=== PATIENT | male | born 1985 | race Hispanic/Latino ===

== ENCOUNTER 2017-08-10 15:48 | Inpatient (IN) | payer MEDICARE, OTHER ==
[~2017-08-10] VITALS: Ht 177.8 cm; Wt 165.6 kg
[2017-08-10] MEDS ORDERED: ONDANSETRON HCL 4 MG/2 ML VIAL ONE (16:37)
[2017-08-10] MEDS ORDERED: MORPHINE SULFATE 8 MG/ML VIAL ONE (16:38)
[2017-08-10 16:59] LABS: BASOPHILS % (AUTO) 0.4 % (0.0-5.0); EOSINOPHILS % (AUTO) 0.9 % (0.0-8.0); LYMPHOCYTES % (AUTO) 17.5 % (21.0-51.0); MEAN CORPUSCULAR HEMOGLOBIN 28.6 pg (27.0-33.0); MEAN CORPUSCULAR HGB CONC 33.8 g/dL (32.0-36.0); MEAN CORPUSCULAR VOLUME 84.6 fL (79-99); MONOCYTES % (AUTO) 6.4 % (3.0-13.0); NEUTROPHILS % (AUTO) 74.8 % (40.0-77.0); PLATELET COUNT (AUTO) 319 K/uL (130-400); RED BLOOD CELL COUNT(AUTO) 4.85 MIL/uL (4.50-6.20); RED CELL DISTRIBUTION WIDTH 14.4 % (11.0-15.5); WHITE BLOOD COUNT (AUTO) 9.2 K/uL (4.8-10.8)
[2017-08-10 17:12] LABS: POTASSIUM 3.2 mmol/L (3.5-5.1)
[2017-08-10 17:17] LABS: ALBUMIN 3.5 g/dL (3.5-5.0); BILIRUBIN,TOTAL 0.7 mg/dL (0.2-1.0); TOTAL PROTEIN, SERUM 7.6 g/dL (6.0-8.3)
[2017-08-10] MEDS ORDERED: GADOBENATE DIMEGLUMINE 20 ML IV ONE (17:31)
[2017-08-10 17:32] LABS: APPEARANCE,URINE Clear (CLEAR); BILIRUBIN,URINE Negative (NEGATIVE); COLOR,URINE Yellow (YELLOW); GLUCOSE, URINE (UA) Negative (NEGATIVE); KETONES,URINE Negative (NEGATIVE); LEUKOCYTE ESTERASE ,URINE Negative (NEGATIVE); NITRATE,URINE Negative (NEGATIVE); OCCULT BLOOD,URINE Negative (NEGATIVE); PH,URINE 6.5 (5.0-8.0); PROTEIN,URINE Trace (NEGATIVE)
[2017-08-10 17:52] LABS: BACTERIA,URINE Rare /HPF (None Seen); RBC,URINE 0-1 /HPF (0-1); SQUAMOUS EPITHELIAL CELL,UR None Seen /HPF (0-2); WBC,URINE 0-1 /HPF (0-1)
[2017-08-10] MEDS ORDERED: MORPHINE SULFATE 4 MG/1ML SYG ONE (22:24)
[2017-08-11] MEDS ORDERED: ACETAMINOPHEN 325 MG TAB PO PRN (00:45)
[2017-08-11] MEDS ORDERED: ONDANSETRON HCL 4 MG/2 ML VIAL ONE (03:06)
[2017-08-11] MEDS ORDERED: MORPHINE SULFATE 4 MG/1ML SYG ONE ×3 (03:07→12:42)
[2017-08-11 15:50] VITALS: BP 133/60
[2017-08-11] MEDS: ONDANSETRON HCL MDV 20ML 2 MG/ML VIAL IVP PRN (17:42)
[2017-08-11] MEDS: ENOXAPARIN SODIUM 40 MG/0.4 ML SYRINGE SQ SCH (17:42)
[2017-08-11] MEDS: MORPHINE SULFATE 4 MG/1ML SYG IVP PRN ×2 (17:43→23:25)
[2017-08-11] MEDS ORDERED: TRAM50TA4 PO (17:48)
[2017-08-11 20:00] VITALS: BP 139/78
[2017-08-12] VITALS: BP 143/74
[2017-08-12] MEDS: MORPHINE SULFATE 4 MG/1ML SYG IVP PRN ×5 (03:17→20:23)
[2017-08-12 04:00] VITALS: BP 116/57
[2017-08-12 07:30] VITALS: BP 82/45
[2017-08-12] MEDS: ENOXAPARIN SODIUM 40 MG/0.4 ML SYRINGE SQ SCH (10:15)
[2017-08-12 11:00] VITALS: BP 132/86
[2017-08-12] MEDS: ONDANSETRON HCL MDV 20ML 2 MG/ML VIAL IVP PRN ×2 (11:53→15:59)
[2017-08-12] MEDS ORDERED: POTASSIUM CHLORIDE 10% ELIXIR 20 MEQ/15 ML UDCUP PO PRN (13:00)
[2017-08-12] MEDS ORDERED: LIDOCAINE HCL-MPF 1% 2ML VIAL IVP PRN (13:00)
[2017-08-12] MEDS ORDERED: POTASSIUM CHLORIDE 20MEQ/100ML 100 ML IV PRN (13:00)
[2017-08-12 16:00] VITALS: BP 191/90
[2017-08-12] MEDS: POTASSIUM CHLORIDE 20 MEQ ERTAB PO PRN ×3 (16:00→20:20)
[2017-08-12 20:00] VITALS: BP 149/100
[2017-08-13] MEDS: MORPHINE SULFATE 4 MG/1ML SYG IVP PRN ×5 (00:45→21:23)
[2017-08-13 04:45] LABS: BASOPHILS % (AUTO) 0.6 % (0.0-5.0); EOSINOPHILS % (AUTO) 0.6 % (0.0-8.0); HEMATOCRIT 41.5 % (42-54); LYMPHOCYTES % (AUTO) 24.7 % (21.0-51.0); MEAN CORPUSCULAR HEMOGLOBIN 29.6 pg (27.0-33.0); MEAN CORPUSCULAR HGB CONC 34.7 g/dL (32.0-36.0); MEAN CORPUSCULAR VOLUME 85.2 fL (79-99); MONOCYTES % (AUTO) 6.9 % (3.0-13.0); NEUTROPHILS % (AUTO) 67.2 % (40.0-77.0); PLATELET COUNT (AUTO) 304 K/uL (130-400); RED BLOOD CELL COUNT(AUTO) 4.87 MIL/uL (4.50-6.20); RED CELL DISTRIBUTION WIDTH 14.5 % (11.0-15.5); WHITE BLOOD COUNT (AUTO) 9.3 K/uL (4.8-10.8)
[2017-08-13 04:56] LABS: CREATININE 0.8 mg/dL (0.5-1.5); MAGNESIUM 1.7 mg/dL (1.80-2.40); POTASSIUM 3.7 mmol/L (3.5-5.1)
[2017-08-13 08:31] VITALS: BP 165/86
[2017-08-13] MEDS: ENOXAPARIN SODIUM 40 MG/0.4 ML SYRINGE SQ SCH (10:01)
[2017-08-13] MEDS: ONDANSETRON HCL MDV 20ML 2 MG/ML VIAL IVP PRN ×2 (10:01→14:17)
[2017-08-13] MEDS ORDERED: GABAPENTIN 100 MG CAPSULE ONE (11:48)
[2017-08-13 12:00] VITALS: BP 160/86
[2017-08-13] MEDS: GABAPENTIN 100 MG CAPSULE PO SCH ×2 (12:38→21:23)
[2017-08-13] MEDS ORDERED: MAGNESIUM SULFATE 1 GM in SODIUM CHLORIDE 0.9% 50 ML IV SCH (15:15)
[2017-08-13] MEDS: HYDROCODONE/ACETAMINOPHEN 5/325 MG TAB PO PRN (15:56)
[2017-08-13 17:24] VITALS: BP 141/80
[2017-08-13 19:53] VITALS: BP 160/97
[2017-08-14 00:20] VITALS: BP 100/63
[2017-08-14] MEDS: HYDROCODONE/ACETAMINOPHEN 5/325 MG TAB PO PRN ×3 (01:17→17:33)
[2017-08-14] MEDS: MORPHINE SULFATE 4 MG/1ML SYG IVP PRN ×4 (03:44→17:59)
[2017-08-14 03:58] LABS: BASOPHILS % (AUTO) 0.5 % (0.0-5.0); EOSINOPHILS % (AUTO) 1.7 % (0.0-8.0); LYMPHOCYTES % (AUTO) 20.5 % (21.0-51.0); MEAN CORPUSCULAR HEMOGLOBIN 28.9 pg (27.0-33.0); MEAN CORPUSCULAR HGB CONC 33.8 g/dL (32.0-36.0); MEAN CORPUSCULAR VOLUME 85.5 fL (79-99); MONOCYTES % (AUTO) 5.6 % (3.0-13.0); NEUTROPHILS % (AUTO) 71.7 % (40.0-77.0); PLATELET COUNT (AUTO) 319 K/uL (130-400); RED BLOOD CELL COUNT(AUTO) 5.15 MIL/uL (4.50-6.20); RED CELL DISTRIBUTION WIDTH 14.7 % (11.0-15.5); WHITE BLOOD COUNT (AUTO) 9.9 K/uL (4.8-10.8)
[2017-08-14 04:20] VITALS: BP 143/78
[2017-08-14 04:25] LABS: CREATININE 0.9 mg/dL (0.5-1.5); MAGNESIUM 1.9 mg/dL (1.80-2.40); POTASSIUM 3.7 mmol/L (3.5-5.1)
[2017-08-14] MEDS: GABAPENTIN 100 MG CAPSULE PO SCH ×3 (06:16→20:07)
[2017-08-14 07:45] VITALS: BP 130/85
[2017-08-14] MEDS: POTASSIUM CHLORIDE 20 MEQ ERTAB PO PRN ×2 (08:40→11:28)
[2017-08-14] MEDS: ENOXAPARIN SODIUM 40 MG/0.4 ML SYRINGE SQ SCH (08:41)
[2017-08-14 12:00] VITALS: BP 131/68
[2017-08-14] MEDS ORDERED: GABAPENTIN 100 MG CAPSULE PO SCH (14:00)
[2017-08-14 16:00] VITALS: BP 123/68
[2017-08-14 20:12] VITALS: BP 129/87
[2017-08-15] VITALS (7 sets, daily range): BP systolic 128–155; BP diastolic 65–89
[2017-08-15] MEDS: MORPHINE SULFATE 4 MG/1ML SYG IVP PRN ×6 (00:46→22:03)
[2017-08-15] MEDS: GABAPENTIN 100 MG CAPSULE PO SCH ×2 (03:22→10:37)
[2017-08-15] MEDS: HYDROCODONE/ACETAMINOPHEN 5/325 MG TAB PO PRN ×2 (03:39→11:58)
[2017-08-15 05:30] LABS: BASOPHILS % (AUTO) 0.4 % (0.0-5.0); EOSINOPHILS % (AUTO) 1.7 % (0.0-8.0); HEMATOCRIT 44.8 % (42-54); LYMPHOCYTES % (AUTO) 20.3 % (21.0-51.0); MEAN CORPUSCULAR HEMOGLOBIN 29.2 pg (27.0-33.0); MEAN CORPUSCULAR HGB CONC 34.1 g/dL (32.0-36.0); MEAN CORPUSCULAR VOLUME 85.8 fL (79-99); MONOCYTES % (AUTO) 6.5 % (3.0-13.0); NEUTROPHILS % (AUTO) 71.1 % (40.0-77.0); PLATELET COUNT (AUTO) 324 K/uL (130-400); RED BLOOD CELL COUNT(AUTO) 5.22 MIL/uL (4.50-6.20); RED CELL DISTRIBUTION WIDTH 15.1 % (11.0-15.5); WHITE BLOOD COUNT (AUTO) 9.5 K/uL (4.8-10.8)
[2017-08-15 05:47] LABS: CREATININE 0.8 mg/dL (0.5-1.5); POTASSIUM 3.6 mmol/L (3.5-5.1)
[2017-08-15] MEDS: POTASSIUM CHLORIDE 20 MEQ ERTAB PO PRN ×2 (07:59→13:56)
[2017-08-15] MEDS: ENOXAPARIN SODIUM 40 MG/0.4 ML SYRINGE SQ SCH (08:00)
[2017-08-15] MEDS: CYCLOBENZAPRINE HCL 10 MG TABLET PO PRN (16:55)
[2017-08-15] MEDS ORDERED: GABAPENTIN 100 MG CAPSULE PO SCH (18:30)
[2017-08-15] MEDS: GABAPENTIN 300 MG CAPSULE PO SCH (20:28)
[2017-08-16] MEDS: MORPHINE SULFATE 4 MG/1ML SYG IVP PRN ×5 (01:55→20:34)
[2017-08-16 03:50] VITALS: BP 140/82
[2017-08-16 07:54] VITALS: BP 164/85
[2017-08-16] MEDS: POTASSIUM CHLORIDE 20 MEQ ERTAB PO PRN ×2 (08:14→11:23)
[2017-08-16] MEDS: CYCLOBENZAPRINE HCL 10 MG TABLET PO PRN (08:14)
[2017-08-16] MEDS: GABAPENTIN 300 MG CAPSULE PO SCH ×3 (08:14→20:31)
[2017-08-16] MEDS: ENOXAPARIN SODIUM 40 MG/0.4 ML SYRINGE SQ SCH (08:15)
[2017-08-16 11:03] VITALS: BP 146/90
[2017-08-16] MEDS ORDERED: GABA-531 PO (14:33)
[2017-08-16] MEDS ORDERED: CYCL10TA7 PO (14:33)
[2017-08-16] MEDS ORDERED: TYL3 PO (14:33)
[2017-08-16 16:31] VITALS: BP 144/111
[2017-08-16 19:45] VITALS: BP 131/98
[2017-08-16 23:37] VITALS: BP 135/98
[2017-08-17] MEDS: MORPHINE SULFATE 4 MG/1ML SYG IVP PRN ×5 (00:21→21:15)
[2017-08-17] MEDS: CYCLOBENZAPRINE HCL 10 MG TABLET PO PRN ×2 (03:30→23:18)
[2017-08-17 03:51] VITALS: BP 161/101
[2017-08-17 06:17] LABS: BASOPHILS % (AUTO) 0.4 % (0.0-5.0); EOSINOPHILS % (AUTO) 1.7 % (0.0-8.0); HEMATOCRIT 45.9 % (42-54); LYMPHOCYTES % (AUTO) 22.8 % (21.0-51.0); MEAN CORPUSCULAR HEMOGLOBIN 29.1 pg (27.0-33.0); MEAN CORPUSCULAR VOLUME 85.6 fL (79-99); MONOCYTES % (AUTO) 7.8 % (3.0-13.0); NEUTROPHILS % (AUTO) 67.3 % (40.0-77.0); PLATELET COUNT (AUTO) 341 K/uL (130-400); RED BLOOD CELL COUNT(AUTO) 5.36 MIL/uL (4.50-6.20); RED CELL DISTRIBUTION WIDTH 14.8 % (11.0-15.5); WHITE BLOOD COUNT (AUTO) 9.6 K/uL (4.8-10.8)
[2017-08-17 06:32] LABS: CREATININE 0.7 mg/dL (0.5-1.5); POTASSIUM 3.4 mmol/L (3.5-5.1)
[2017-08-17 07:31] VITALS: BP 151/88
[2017-08-17] MEDS: ENOXAPARIN SODIUM 40 MG/0.4 ML SYRINGE SQ SCH (07:51)
[2017-08-17] MEDS: GABAPENTIN 300 MG CAPSULE PO SCH ×3 (07:51→21:11)
[2017-08-17 11:28] VITALS: BP 145/86
[2017-08-17 16:32] VITALS: BP 101/86
[2017-08-17] MEDS ORDERED: MORPHINE SULFATE 4 MG/1ML SYG IV ONE (18:00)
[2017-08-17 20:16] VITALS: BP 157/79
[2017-08-18 00:16] VITALS: BP 112/58
[2017-08-18] MEDS ORDERED: MORPHINE SULFATE 4 MG/1ML SYG ONE (03:50)
[2017-08-18 04:16] VITALS: BP 125/54
[2017-08-18 05:02] LABS: BASOPHILS % (AUTO) 0.7 % (0.0-5.0); EOSINOPHILS % (AUTO) 2.6 % (0.0-8.0); HEMATOCRIT 46.1 % (42-54); LYMPHOCYTES % (AUTO) 26.6 % (21.0-51.0); MEAN CORPUSCULAR HEMOGLOBIN 28.9 pg (27.0-33.0); MEAN CORPUSCULAR HGB CONC 33.4 g/dL (32.0-36.0); MEAN CORPUSCULAR VOLUME 86.5 fL (79-99); MONOCYTES % (AUTO) 6.2 % (3.0-13.0); NEUTROPHILS % (AUTO) 63.9 % (40.0-77.0); PLATELET COUNT (AUTO) 347 K/uL (130-400); RED BLOOD CELL COUNT(AUTO) 5.33 MIL/uL (4.50-6.20); RED CELL DISTRIBUTION WIDTH 14.8 % (11.0-15.5)
[2017-08-18 05:10] LABS: CREATININE 0.8 mg/dL (0.5-1.5); POTASSIUM 3.8 mmol/L (3.5-5.1)
[2017-08-18 07:43] VITALS: BP 127/105
[2017-08-18] MEDS: GABAPENTIN 300 MG CAPSULE PO SCH ×3 (08:56→20:26)
[2017-08-18] MEDS: MORPHINE SULFATE 4 MG/1ML SYG IV PRN ×3 (08:57→18:08)
[2017-08-18] MEDS: ENOXAPARIN SODIUM 40 MG/0.4 ML SYRINGE SQ SCH (08:57)
[2017-08-18 11:00] VITALS: BP 152/70
[2017-08-18 15:09] VITALS: BP 125/78
[2017-08-18] MEDS: CYCLOBENZAPRINE HCL 10 MG TABLET PO PRN (18:59)
[2017-08-18 20:20] VITALS: BP 121/91
[2017-08-19 00:20] VITALS: BP 140/97
[2017-08-19] MEDS: MORPHINE SULFATE 4 MG/1ML SYG IV PRN ×4 (00:23→18:32)
[2017-08-19 04:20] VITALS: BP 130/74
[2017-08-19 07:00] VITALS: BP 120/69
[2017-08-19] MEDS: GABAPENTIN 300 MG CAPSULE PO SCH ×3 (09:00→21:48)
[2017-08-19] MEDS: ENOXAPARIN SODIUM 40 MG/0.4 ML SYRINGE SQ SCH (09:00)
[2017-08-19 11:11] VITALS: BP 151/81
[2017-08-19 15:33] VITALS: BP 131/54
[2017-08-19] MEDS: CYCLOBENZAPRINE HCL 10 MG TABLET PO PRN ×2 (17:18→21:48)
[2017-08-19 20:00] VITALS: BP 150/82
[2017-08-19] MEDS: HYDROCODONE/ACETAMINOPHEN 10/325 MG TAB PO PRN (21:50)
[2017-08-20] VITALS: BP 135/89
[2017-08-20 04:00] VITALS: BP 136/91
[2017-08-20] MEDS: MORPHINE SULFATE 4 MG/1ML SYG IV PRN ×4 (04:00→19:57)
[2017-08-20 04:46] LABS: HEMATOCRIT 43.7 % (42-54); MEAN CORPUSCULAR HEMOGLOBIN 28.9 pg (27.0-33.0); NUCLEATED RED BLOOD CELLS 0.1 % (0.0-0.19); PLATELET COUNT (AUTO) 347 K/uL (130-400); RED BLOOD CELL COUNT(AUTO) 5.14 MIL/uL (4.50-6.20); RED CELL DISTRIBUTION WIDTH 14.7 % (11.0-15.5); WHITE BLOOD COUNT (AUTO) 8.4 K/uL (4.8-10.8)
[2017-08-20 04:57] LABS: CREATININE 0.9 mg/dL (0.5-1.5); POTASSIUM 3.7 mmol/L (3.5-5.1)
[2017-08-20 07:30] VITALS: BP 143/109
[2017-08-20] MEDS: GABAPENTIN 300 MG CAPSULE PO SCH ×3 (08:20→19:56)
[2017-08-20] MEDS: ENOXAPARIN SODIUM 40 MG/0.4 ML SYRINGE SQ SCH (08:20)
[2017-08-20] MEDS: POTASSIUM CHLORIDE 20 MEQ ERTAB PO PRN (08:20)
[2017-08-20 11:00] VITALS: BP 157/73
[2017-08-20] MEDS: CYCLOBENZAPRINE HCL 10 MG TABLET PO PRN ×2 (11:52→19:56)
[2017-08-20 16:00] VITALS: BP 121/75
[2017-08-20 19:55] VITALS: BP 128/60
[2017-08-21] VITALS (19 sets, daily range): BP systolic 127–175; BP diastolic 57–115
[2017-08-21] MEDS: MORPHINE SULFATE 4 MG/1ML SYG IV PRN ×3 (00:14→15:12)
[2017-08-21] MEDS: HYDROCODONE/ACETAMINOPHEN 10/325 MG TAB PO PRN ×2 (02:56→15:12)
[2017-08-21 04:42] LABS: HEMATOCRIT 44.2 % (42-54); MEAN CORPUSCULAR HEMOGLOBIN 29.2 pg (27.0-33.0); MEAN CORPUSCULAR HGB CONC 34.2 g/dL (32.0-36.0); MEAN CORPUSCULAR VOLUME 85.2 fL (79-99); PLATELET COUNT (AUTO) 356 K/uL (130-400); RED BLOOD CELL COUNT(AUTO) 5.19 MIL/uL (4.50-6.20); RED CELL DISTRIBUTION WIDTH 14.7 % (11.0-15.5); WHITE BLOOD COUNT (AUTO) 9.1 K/uL (4.8-10.8)
[2017-08-21 04:45] LABS: CREATININE 0.8 mg/dL (0.5-1.5); POTASSIUM 3.6 mmol/L (3.5-5.1)
[2017-08-21 04:51] LABS: BAND NEUTROPHILS % (MANUAL) 2 % (0-2); BASOPHILS % (MANUAL) 1 % (0-2); EOSINOPHILS % (MANUAL) 2 % (1-6); LYMPHOCYTES % (MANUAL) 36 % (22-44); MONOCYTES % (MANUAL) 5 % (2-9); REACTIVE LYMPHOCYTES 5 % (0-0); SEGMENTED NEUTROPHILS % 49 % (40-70)
[2017-08-21 04:52] LABS: MAN.DIFF COMMENT-IMPRESSION MANUAL DIFFERENTIAL
[2017-08-21] MEDS ORDERED: LACTATED RINGERS 1000ML 1,000 ML IV ONE (06:36)
[2017-08-21] MEDS: CEFAZOLIN SODIUM 1 GM VIAL ONE ×2 (06:50→08:00)
[2017-08-21] MEDS ORDERED: DEXAMETHASONE SOD PHOSPHATE 10MG/ML 1ML VIAL ONE ×2 (06:57→10:41)
[2017-08-21] MEDS ORDERED: LIDOCAINE PF 2% 5ML ABBOJECT ONE (06:57)
[2017-08-21] MEDS ORDERED: NEOSTIGMINE 5MG/5ML SYR IV ONE (06:57)
[2017-08-21] MEDS ORDERED: ONDANSETRON HCL 4 MG/2 ML VIAL ONE ×2 (06:57→10:42)
[2017-08-21] MEDS ORDERED: GLYCOPYRROLATE 0.2 MG/ML 5 ML VIAL ONE (06:58)
[2017-08-21] MEDS ORDERED: MIDAZOLAM HCL 1 MG/ML 2ML VIAL ONE ×2 (06:59→07:45)
[2017-08-21] MEDS ORDERED: PROPOFOL 10 MG/ML 20ML VIAL IV ONE ×2 (06:59→11:54)
[2017-08-21] MEDS ORDERED: FENTANYL CITRATE PF 50 MCG/1 ML 2ML VIAL ONE ×7 (07:00→14:12)
[2017-08-21] MEDS ORDERED: THROMBIN-JMI 20000 UNIT KIT TP ONE (07:03)
[2017-08-21] MEDS ORDERED: BACITRACIN 50,000 UNIT VIAL ONE ×2 (07:03→10:27)
[2017-08-21] MEDS ORDERED: BUPIVACAINE/PF 0.25% 30ML VIAL IJ ONE (07:03)
[2017-08-21] MEDS ORDERED: EPINEPHRINE 1 MG/ML AMPULE ONE (07:04)
[2017-08-21] MEDS ORDERED: MANNITOL 20% IV ONE (08:32)
[2017-08-21] MEDS: ENOXAPARIN SODIUM 40 MG/0.4 ML SYRINGE SQ SCH (09:00)
[2017-08-21] MEDS: GABAPENTIN 300 MG CAPSULE PO SCH ×3 (09:00→20:07)
[2017-08-21] MEDS ORDERED: SUCCINYLCHOLINE CHLORIDE 20 MG/ML 10 ML VIAL ONE ×2 (10:41)
[2017-08-21] MEDS ORDERED: ROCURONIUM BROMIDE 10MG/1ML 5ML VL ONE ×2 (10:41)
[2017-08-21] MEDS ORDERED: METOCLOPRAMIDE 10 MG/2 ML VIAL ONE (10:41)
[2017-08-21] MEDS ORDERED: LIDOCAINE HCL 2% JELLY 5 ML ONE (10:54)
[2017-08-21] MEDS ORDERED: ARTIFICIAL TEARS 3.5 GM OINTMENT ONE (10:54)
[2017-08-21] MEDS ORDERED: CEFAZOLIN SODIUM 1 GM VIAL ONE (11:43)
[2017-08-21] MEDS ORDERED: COMPOUND IV REFRIGERATED 1 EACH IVSOLN MISC PRN (11:45)
[2017-08-21] MEDS ORDERED: CEFAZOLIN SODIUM 1 GM VIAL IVP ONE (12:00)
[2017-08-21] MEDS ORDERED: CEFAZOLIN 3GM /D5W 100ML 100 ML IV ONE (12:00)
[2017-08-21] MEDS ORDERED: MEPERIDINE-PF 25 MG/ML SYG ONE ×2 (12:03→13:46)
[2017-08-21] MEDS ORDERED: PROMETHAZINE HCL 25 MG/ML 1ML AMPULE IM ONE (13:46)
[2017-08-21] MEDS: LACTATED RINGERS 1000ML 1,000 ML IV SCH (14:19)
[2017-08-21] MEDS ORDERED: SODIUM CHLORIDE 0.9% 10 ML VIAL IVP PRN (14:30)
[2017-08-21] MEDS ORDERED: CEFAZOLIN 3GM /D5W 100ML 100 ML IV SCH (14:30)
[2017-08-21] MEDS ORDERED: MORPHINE SULFATE 2 MG/ML 1ML SYG IVP PRN (14:30)
[2017-08-21] MEDS ORDERED: CEFAZOLIN SODIUM 1 GM VIAL IVP SCH (14:30)
[2017-08-21] MEDS ORDERED: ACETAMINOPHEN-CODEINE 300/30MG TAB PO SCH (14:30)
[2017-08-21] MEDS: DEXAMETHASONE SOD PHOSPHATE 4 MG/ML 1ML VIAL IVP SCH ×2 (15:16→20:07)
[2017-08-21] MEDS ORDERED: ONDANSETRON HCL 4 MG/2 ML VIAL IV PRN (16:15)
[2017-08-21] MEDS ORDERED: PROMETHAZINE HCL 25 MG/ML 1ML AMPULE IM PRN (16:15)
[2017-08-21] MEDS ORDERED: DIPHENHYDRAMINE HCL 25 MG CAPSULE PO PRN (16:15)
[2017-08-21] MEDS ORDERED: NALOXONE HCL 0.4 MG/1 ML ML IVP PRN (16:15)
[2017-08-21] MEDS ORDERED: HYDROMORPHONE 1 MG/1 ML AMP ONE (16:21)
[2017-08-21] MEDS: CYCLOBENZAPRINE HCL 10 MG TABLET PO PRN ×2 (16:24→23:18)
[2017-08-21] MEDS: CEFAZOLIN 3GM /D5W 100ML 100 ML IV SCH ×2 (16:24→23:08)
[2017-08-21] MEDS ORDERED: HYDROMORPHONE 1 MG/1 ML AMP IVP ONE (16:30)
[2017-08-21] MEDS ORDERED: HYDROMORPHONE HCL 2 MG/ML VIAL IVP ONE (16:30)
[2017-08-21] MEDS: HYDROMORPHONE PCA 10 MG/50 ML 50 ML IV PRN (17:39)
[2017-08-21] MEDS ORDERED: GABAPENTIN 300 MG CAPSULE ONE (19:37)
[2017-08-22] VITALS (7 sets, daily range): BP systolic 100–133; BP diastolic 57–78
[2017-08-22] MEDS: DEXAMETHASONE SOD PHOSPHATE 4 MG/ML 1ML VIAL IVP SCH ×4 (01:52→16:55)
[2017-08-22] MEDS: LACTATED RINGERS 1000ML 1,000 ML IV SCH ×3 (03:39→19:29)
[2017-08-22 04:45] LABS: HEMATOCRIT 39.6 % (42-54); MEAN CORPUSCULAR HEMOGLOBIN 28.7 pg (27.0-33.0); MEAN CORPUSCULAR HGB CONC 33.6 g/dL (32.0-36.0); MEAN CORPUSCULAR VOLUME 85.2 fL (79-99); NUCLEATED RED BLOOD CELLS 0.1 % (0.0-0.19); PLATELET COUNT (AUTO) 376 K/uL (130-400); RED BLOOD CELL COUNT(AUTO) 4.65 MIL/uL (4.50-6.20); RED CELL DISTRIBUTION WIDTH 14.8 % (11.0-15.5); WHITE BLOOD COUNT (AUTO) 18.9 K/uL (4.8-10.8)
[2017-08-22 04:54] LABS: POTASSIUM 3.4 mmol/L (3.5-5.1)
[2017-08-22] MEDS: HYDROMORPHONE PCA 10 MG/50 ML 50 ML IV PRN (05:31)
[2017-08-22] MEDS: CEFAZOLIN 3GM /D5W 100ML 100 ML IV SCH (06:12)
[2017-08-22] MEDS: POTASSIUM CHLORIDE 20 MEQ ERTAB PO PRN ×3 (06:55→11:52)
[2017-08-22] MEDS: GABAPENTIN 300 MG CAPSULE PO SCH ×3 (08:33→19:53)
[2017-08-22] MEDS: HYDROCODONE/ACETAMINOPHEN 10/325 MG TAB PO PRN (09:39)
[2017-08-22] MEDS: ENOXAPARIN SODIUM 40 MG/0.4 ML SYRINGE SQ SCH (09:39)
[2017-08-22] MEDS: MORPHINE SULFATE 4 MG/1ML SYG IV PRN ×2 (11:53→18:24)
[2017-08-22] MEDS ORDERED: FENTANYL 50 MCG/HR PATCH TD SCH (13:15)
[2017-08-22] MEDS: CYCLOBENZAPRINE HCL 10 MG TABLET PO SCH ×2 (14:44→19:53)
[2017-08-22] MEDS: HYDROCODONE/ACETAMINOPHEN 5/325 MG TAB PO PRN (16:55)
[2017-08-22] MEDS: ACETAMINOPHEN-CODEINE 300/30MG TAB PO PRN (19:54)
[2017-08-23] MEDS: MORPHINE SULFATE 4 MG/1ML SYG IV PRN ×5 (00:52→23:23)
[2017-08-23] MEDS: DEXAMETHASONE SOD PHOSPHATE 4 MG/ML 1ML VIAL IVP SCH ×4 (02:54→19:34)
[2017-08-23 04:00] VITALS: BP 130/89
[2017-08-23 05:31] LABS: HEMATOCRIT 37.5 % (42-54); MEAN CORPUSCULAR HEMOGLOBIN 29.6 pg (27.0-33.0); MEAN CORPUSCULAR HGB CONC 34.4 g/dL (32.0-36.0); MEAN CORPUSCULAR VOLUME 86.1 fL (79-99); PLATELET COUNT (AUTO) 385 K/uL (130-400); RED BLOOD CELL COUNT(AUTO) 4.36 MIL/uL (4.50-6.20); RED CELL DISTRIBUTION WIDTH 14.8 % (11.0-15.5); WHITE BLOOD COUNT (AUTO) 18.7 K/uL (4.8-10.8)
[2017-08-23 05:55] LABS: ALBUMIN 2.6 g/dL (3.5-5.0); BILIRUBIN,TOTAL 0.5 mg/dL (0.2-1.0); CREATININE 0.7 mg/dL (0.5-1.5); POTASSIUM 3.8 mmol/L (3.5-5.1)
[2017-08-23 07:38] VITALS: BP 132/71
[2017-08-23] MEDS: CYCLOBENZAPRINE HCL 10 MG TABLET PO SCH ×3 (08:58→19:34)
[2017-08-23] MEDS: HYDROCODONE/ACETAMINOPHEN 5/325 MG TAB PO PRN ×3 (08:59→22:15)
[2017-08-23] MEDS: GABAPENTIN 300 MG CAPSULE PO SCH ×3 (08:59→19:34)
[2017-08-23] MEDS: ENOXAPARIN SODIUM 40 MG/0.4 ML SYRINGE SQ SCH (09:01)
[2017-08-23 11:21] VITALS: BP 129/87
[2017-08-23 16:25] VITALS: BP 113/66
[2017-08-23] MEDS: LIDOCAINE 5% TOPICAL PATCH TP SCH (18:20)
[2017-08-23] MEDS: LACTATED RINGERS 1000ML 1,000 ML IV SCH (19:39)
[2017-08-23 20:14] VITALS: BP 130/59
[2017-08-24] VITALS (7 sets, daily range): BP systolic 116–163; BP diastolic 71–94
[2017-08-24] MEDS: DEXAMETHASONE SOD PHOSPHATE 4 MG/ML 1ML VIAL IVP SCH ×4 (02:28→20:42)
[2017-08-24] MEDS: MORPHINE SULFATE 4 MG/1ML SYG IV PRN (05:42)
[2017-08-24] MEDS: LIDOCAINE 5% TOPICAL PATCH TP SCH (08:40)
[2017-08-24] MEDS: CYCLOBENZAPRINE HCL 10 MG TABLET PO SCH ×3 (08:40→20:42)
[2017-08-24] MEDS: GABAPENTIN 300 MG CAPSULE PO SCH ×3 (08:40→20:42)
[2017-08-24] MEDS: ENOXAPARIN SODIUM 40 MG/0.4 ML SYRINGE SQ SCH (08:41)
[2017-08-24] MEDS: TRAMADOL HCL 50 MG TABLET PO PRN (08:50)
[2017-08-24] MEDS: LACTATED RINGERS 1000ML 1,000 ML IV SCH ×2 (08:59→22:19)
[2017-08-24] MEDS: ACETAMINOPHEN-CODEINE 300/30MG TAB PO PRN (09:32)
[2017-08-24] MEDS ORDERED: MEPERIDINE HCL/PF 25 MG/0.5 ML AMPUL IVP PRN (13:45)
[2017-08-24] MEDS ORDERED: FENTANYL 75 MCG/HR PATCH TD SCH (14:00)
[2017-08-24] MEDS: MEPERIDINE-PF 25 MG/ML SYG IVP PRN ×3 (16:30→21:53)
[2017-08-24] MEDS: HYDROCODONE/ACETAMINOPHEN 10/325 MG TAB PO PRN (20:43)
[2017-08-25 03:35] VITALS: BP 146/95
[2017-08-25] MEDS: DEXAMETHASONE SOD PHOSPHATE 4 MG/ML 1ML VIAL IVP SCH ×4 (04:05→20:14)
[2017-08-25] MEDS: MEPERIDINE-PF 25 MG/ML SYG IVP PRN ×5 (04:06→23:45)
[2017-08-25] MEDS: GABAPENTIN 300 MG CAPSULE PO SCH ×3 (08:16→20:13)
[2017-08-25] MEDS: LIDOCAINE 5% TOPICAL PATCH TP SCH (08:17)
[2017-08-25] MEDS: ENOXAPARIN SODIUM 40 MG/0.4 ML SYRINGE SQ SCH (08:34)
[2017-08-25 08:41] VITALS: BP 147/92
[2017-08-25] MEDS: HYDROCODONE/ACETAMINOPHEN 10/325 MG TAB PO PRN ×2 (10:24→20:13)
[2017-08-25] MEDS: CYCLOBENZAPRINE HCL 10 MG TABLET PO SCH ×3 (10:32→20:12)
[2017-08-25 12:00] VITALS: BP 152/73
[2017-08-25 16:00] VITALS: BP 137/69
[2017-08-25 20:00] VITALS: BP 102/71
[2017-08-25] MEDS: DOCUSATE SODIUM 100 MG CAP PO SCH (21:00)
[2017-08-26] VITALS: BP 133/76
[2017-08-26] MEDS: MEPERIDINE-PF 25 MG/ML SYG IVP PRN ×2 (03:40→08:17)
[2017-08-26] MEDS: DEXAMETHASONE SOD PHOSPHATE 4 MG/ML 1ML VIAL IVP SCH ×4 (03:40→20:30)
[2017-08-26 04:00] VITALS: BP 146/82
[2017-08-26 05:02] LABS: BASOPHILS % (AUTO) 0.1 % (0.0-5.0); HEMATOCRIT 43.5 % (42-54); LYMPHOCYTES % (AUTO) 20.3 % (21.0-51.0); MEAN CORPUSCULAR HEMOGLOBIN 28.7 pg (27.0-33.0); MEAN CORPUSCULAR HGB CONC 33.5 g/dL (32.0-36.0); MEAN CORPUSCULAR VOLUME 85.8 fL (79-99); MONOCYTES % (AUTO) 6.6 % (3.0-13.0); PLATELET COUNT (AUTO) 486 K/uL (130-400); RED BLOOD CELL COUNT(AUTO) 5.07 MIL/uL (4.50-6.20); RED CELL DISTRIBUTION WIDTH 14.6 % (11.0-15.5)
[2017-08-26 05:22] LABS: CREATININE 0.7 mg/dL (0.5-1.5); POTASSIUM 3.6 mmol/L (3.5-5.1)
[2017-08-26 07:57] VITALS: BP 153/108
[2017-08-26] MEDS: HYDROCODONE/ACETAMINOPHEN 10/325 MG TAB PO PRN ×3 (08:03→18:35)
[2017-08-26] MEDS: DOCUSATE SODIUM 100 MG CAP PO SCH ×2 (09:00→20:16)
[2017-08-26] MEDS: GABAPENTIN 300 MG CAPSULE PO SCH ×3 (09:58→20:15)
[2017-08-26] MEDS: CYCLOBENZAPRINE HCL 10 MG TABLET PO SCH ×3 (09:58→20:16)
[2017-08-26] MEDS: ENOXAPARIN SODIUM 40 MG/0.4 ML SYRINGE SQ SCH (09:58)
[2017-08-26] MEDS: LIDOCAINE 5% TOPICAL PATCH TP SCH (09:58)
[2017-08-26 12:14] VITALS: BP 124/105
[2017-08-26 16:00] VITALS: BP 139/85
[2017-08-26] MEDS: MEPERIDINE-PF 25 MG/ML SYG IM PRN ×2 (16:14→20:18)
[2017-08-26] MEDS: TRAMADOL HCL 50 MG TABLET PO PRN (20:16)
[2017-08-26] MEDS: PROMETHAZINE HCL 25 MG/ML 1ML AMPULE IM PRN (20:17)
[2017-08-26 20:42] VITALS: BP 147/63
[2017-08-27] MEDS: PROMETHAZINE HCL 25 MG/ML 1ML AMPULE IM PRN ×2 (00:59→06:11)
[2017-08-27] MEDS: HYDROCODONE/ACETAMINOPHEN 10/325 MG TAB PO PRN ×3 (01:00→16:35)
[2017-08-27] MEDS: MEPERIDINE-PF 25 MG/ML SYG IM PRN ×3 (01:01→10:29)
[2017-08-27] MEDS: DEXAMETHASONE SOD PHOSPHATE 4 MG/ML 1ML VIAL IVP SCH ×2 (02:30→08:30)
[2017-08-27 08:02] VITALS: BP 139/107
[2017-08-27] MEDS ORDERED: FENTANYL 100 MCG/HR PATCH TD ONE ×2 (08:51→12:16)
[2017-08-27] MEDS: GABAPENTIN 300 MG CAPSULE PO SCH ×2 (09:28→14:49)
[2017-08-27] MEDS: LIDOCAINE 5% TOPICAL PATCH TP SCH (09:28)
[2017-08-27] MEDS: CYCLOBENZAPRINE HCL 10 MG TABLET PO SCH ×2 (09:28→14:49)
[2017-08-27] MEDS: ENOXAPARIN SODIUM 40 MG/0.4 ML SYRINGE SQ SCH (09:30)
[2017-08-27] MEDS: DOCUSATE SODIUM 100 MG CAP PO SCH (09:31)
[2017-08-27 12:00] VITALS: BP 134/74
[2017-08-27] MEDS ORDERED: MEPERIDINE-PF 25 MG/ML SYG IM PRN (13:30)
[2017-08-27] MEDS ORDERED: FENTANYL 100 MCG/HR PATCH TD SCH (14:00)
[2017-08-27] MEDS: LACTULOSE 20 GM/30 ML UDCUP PO PRN ×2 (14:49→14:50)
== END 2017-08-27 17:03 | DRG 516 ==
LOC: EDH 15:48 → EDHIP 15:49 → 4CH 08-11 15:58 → 4BH 08-14 18:54
PROVIDERS: ADMIT Family Medicine; ATTEND Family Medicine
PROC: 01N80ZZ Release Thoracic Nerve, Open Approach (ICD-10-PCS; principal; 2017-08-21 07:45)
PROC: 4A11X4G Monitoring of Peripheral Nervous Electrical Activity, Intraoperative, External Approach (ICD-10-PCS; 2017-08-21 07:45)
DX: M48.04 Spinal stenosis, thoracic region (principal); G95.20 Unspecified cord compression; Z68.43 Body mass index [BMI] 50.0-59.9, adult; G82.20 Paraplegia, unspecified; E66.01 Morbid (severe) obesity due to excess calories; M47.816 Spondylosis without myelopathy or radiculopathy, lumbar region; M54.5 Low back pain; Z98.1 Arthrodesis status; D72.829 Elevated white blood cell count, unspecified; G62.9 Polyneuropathy, unspecified; G89.29 Other chronic pain; Z87.891 Personal history of nicotine dependence
CPT/HCPCS: 36415; 71045; 72146; 72158; 76000; 80048; 80053; 81001; 83735; 84132; 85025; 85027; 93005; 97039; A4218; A9577; J0171; J0330; J0690; J1100; J1170; J1650; J2001; J2175; J2250; J2270; J2405; J2550; J2704; J2710; J2765; J3010; J3475; J3490; J7030; J7120

== ENCOUNTER 2017-11-18 01:39 | Emergency (ER) | payer MEDICARE, OTHER ==
[~2017-11-18 01:39] MED LIST: CYCL10TA7 PO; GABA-531 PO; TRAM50TA4 PO; TYL3 PO
[2017-11-18 03:31] LABS: BASOPHILS % (AUTO) 0.5 % (0.0-5.0); EOSINOPHILS % (AUTO) 1.2 % (0.0-8.0); HEMATOCRIT 41.1 % (42-54); MEAN CORPUSCULAR HEMOGLOBIN 27.5 pg (27.0-33.0); MEAN CORPUSCULAR VOLUME 83.1 fL (79-99); MONOCYTES % (AUTO) 4.6 % (3.0-13.0); NEUTROPHILS % (AUTO) 81.7 % (40.0-77.0); PLATELET COUNT (AUTO) 334 K/uL (130-400); RED BLOOD CELL COUNT(AUTO) 4.94 MIL/uL (4.50-6.20); RED CELL DISTRIBUTION WIDTH 14.4 % (11.0-15.5); WHITE BLOOD COUNT (AUTO) 11.2 K/uL (4.8-10.8)
[2017-11-18 03:38] LABS: CREATININE 0.7 mg/dL (0.5-1.5); POTASSIUM 3.3 mmol/L (3.5-5.1)
[2017-11-18 03:44] LABS: ALBUMIN 3.8 g/dL (3.5-5.0); BILIRUBIN,TOTAL 0.6 mg/dL (0.2-1.0); TOTAL PROTEIN, SERUM 8.8 g/dL (6.0-8.3)
[2017-11-18 03:48] LABS: PARTIAL THROMBOPLASTIN TIME 30.4 SEC (26.3-35.5); PROTHROMBIN TIME 10.5 SEC (9.6-11.6)
[2017-11-18 03:49] LABS: CREATINE KINASE, TOTAL 163 U/L (21-232); MYOGLOBIN 46 ng/mL (10-92); TROPONIN I < 0.04 ng/mL (0.00-0.06)
[2017-11-18 03:54] LABS: BILIRUBIN,URINE Negative (NEGATIVE); COLOR,URINE Yellow (YELLOW); GLUCOSE, URINE (UA) Negative (NEGATIVE); KETONES,URINE Trace mg/dL (NEGATIVE); LEUKOCYTE ESTERASE ,URINE Trace (NEGATIVE); NITRATE,URINE Negative (NEGATIVE); OCCULT BLOOD,URINE Negative (NEGATIVE); PH,URINE >=9.0 (5.0-8.0); PROTEIN,URINE Negative (NEGATIVE)
[2017-11-18 04:02] LABS: AMPHET/METH SCREEN,URINE NEGATIVE (NEGATIVE); BARBITURATE SCREEN, URINE NEGATIVE (NEGATIVE); BENZODIAZEPINES SCREEN,URINE NEGATIVE (NEGATIVE); CANNABINOID SCREEN,URINE NEGATIVE (NEGATIVE); COCAINE SCREEN,URINE NEGATIVE (NEGATIVE); OPIATE SCREEN,URINE NEGATIVE (NEGATIVE); PHENCYCLIDINE SCREEN,URINE NEGATIVE (NEGATIVE)
[2017-11-18 04:03] LABS: APPEARANCE,URINE SLIGHTLY CLOUDY (CLEAR)
[2017-11-18 04:17] LABS: AMORPHOUS SEDIMENT,UR Moderate /LPF (None Seen); BACTERIA,URINE Few /HPF (None Seen); RBC,URINE 0-1 /HPF (0-1); SQUAMOUS EPITHELIAL CELL,UR 0-2 /HPF (0-2)
[2017-11-18] MEDS ORDERED: IOHEXOL 350 MG/ML 100ML INFUS..BTL IV ONE (04:21)
== END 2017-11-18 07:38 | disposition home or self-care (01) ==
LOC: EDH 01:39
DX: F41.9 Anxiety disorder, unspecified (principal); R60.9 Edema, unspecified; R06.02 Shortness of breath; E66.01 Morbid (severe) obesity due to excess calories; Z68.43 Body mass index [BMI] 50.0-59.9, adult
CPT/HCPCS: 36415; 71045; 71275; 80053; 80305; 81001; 82550; 83874; 84484; 85025; 85378; 85610; 85730; 93005; 99285; Q9967

== ENCOUNTER 2019-05-25 20:21 | Emergency (ER) | payer OTHER, MEDICARE ==
[2019-05-25 20:49] LABS: BASOPHILS % (AUTO) 0.5 % (0.0-5.0); EOSINOPHILS % (AUTO) 1.3 % (0.0-8.0); HEMATOCRIT 46.3 % (42-54); LYMPHOCYTES % (AUTO) 18.7 % (21.0-51.0); MEAN CORPUSCULAR HEMOGLOBIN 28.1 pg (27.0-33.0); MEAN CORPUSCULAR HGB CONC 33.5 g/dL (32.0-36.0); MEAN CORPUSCULAR VOLUME 83.9 fL (79-99); MONOCYTES % (AUTO) 6.2 % (3.0-13.0); NEUTROPHILS % (AUTO) 73.1 % (40.0-77.0); PLATELET COUNT (AUTO) 356 K/uL (130-400); RED BLOOD CELL COUNT(AUTO) 5.52 MIL/uL (4.50-6.20); RED CELL DISTRIBUTION WIDTH 13.8 % (11.0-15.5); WHITE BLOOD COUNT (AUTO) 12.2 K/uL (4.8-10.8)
[2019-05-25 21:07] LABS: ALBUMIN 3.7 g/dL (3.5-5.0); BILIRUBIN,TOTAL 0.8 mg/dL (0.2-1.0); CREATININE 0.8 mg/dL (0.5-1.5); TOTAL PROTEIN, SERUM 9.1 g/dL (6.0-8.3)
[2019-05-25 21:14] LABS: POTASSIUM 2.9 mmol/L (3.5-5.1)
[2019-05-25] MEDS ORDERED: POTASSIUM CHLORIDE 20 MEQ ERTAB PO ONE (21:17)
[2019-05-25] MEDS ORDERED: ONDANSETRON HCL 4 MG/2 ML VIAL ONE (21:17)
[2019-05-25 21:26] LABS: APPEARANCE,URINE Clear (CLEAR); BILIRUBIN,URINE Negative (NEGATIVE); COLOR,URINE Yellow (YELLOW); GLUCOSE, URINE (UA) Negative (NEGATIVE); KETONES,URINE Negative (NEGATIVE); LEUKOCYTE ESTERASE ,URINE Negative (NEGATIVE); NITRATE,URINE Negative (NEGATIVE); OCCULT BLOOD,URINE Nonhemolyzed Trace (NEGATIVE); PH,URINE 6.5 (5.0-8.0); PROTEIN,URINE POS 1+ mg/dL (NEGATIVE)
[2019-05-25 21:31] LABS: AMPHET/METH SCREEN,URINE NEGATIVE (NEGATIVE); BARBITURATE SCREEN, URINE NEGATIVE (NEGATIVE); BENZODIAZEPINES SCREEN,URINE NEGATIVE (NEGATIVE); CANNABINOID SCREEN,URINE NEGATIVE (NEGATIVE); COCAINE SCREEN,URINE NEGATIVE (NEGATIVE); OPIATE SCREEN,URINE NEGATIVE (NEGATIVE); PHENCYCLIDINE SCREEN,URINE NEGATIVE (NEGATIVE)
[2019-05-25 21:47] LABS: BACTERIA,URINE Rare /HPF (None Seen); WBC,URINE 0-1 /HPF (0-1)
[2019-05-25 21:48] LABS: MUCUS,URINE Rare LPF (None Seen); SQUAMOUS EPITHELIAL CELL,UR Rare /HPF (0-2)
[2019-05-25] MEDS ORDERED: POTASSIUM BICARB/CIT AC 25 MEQ TABLET.EFF ONE (22:21)
[2019-05-25 22:36] LABS: INR 0.98 (0.85-1.15); PARTIAL THROMBOPLASTIN TIME 30.9 SEC (26.3-35.5); PROTHROMBIN TIME 10.6 SEC (9.6-11.6)
[2019-05-25] MEDS ORDERED: OXYMETAZOLINE HCL SPRAY 15 ML BOTTLE ONE (23:22)
== END 2019-05-25 23:32 | disposition home or self-care (01) ==
LOC: EDH 20:21
DX: E87.6 Hypokalemia (principal); R42 Dizziness and giddiness; I10 Essential (primary) hypertension; F41.9 Anxiety disorder, unspecified; R04.0 Epistaxis; Z87.891 Personal history of nicotine dependence
CPT/HCPCS: 36415; 80053; 80305; 81001; 82550; 84484; 85025; 85610; 85730; 93005; 96374; 99285; J2405

== ENCOUNTER 2019-06-23 17:49 | Emergency (ER) | payer OTHER, MEDICARE ==
[2019-06-23] MEDS ORDERED: SODIUM CHLORIDE IRRIG SOLUTION 1,000 ML IR ONE (17:50)
[2019-06-23 18:38] LABS: BASOPHILS % (AUTO) 0.8 % (0.0-5.0); EOSINOPHILS % (AUTO) 1.3 % (0.0-8.0); HEMATOCRIT 43.6 % (42-54); LYMPHOCYTES % (AUTO) 20.4 % (21.0-51.0); MEAN CORPUSCULAR HEMOGLOBIN 28.5 pg (27.0-33.0); MEAN CORPUSCULAR HGB CONC 33.5 g/dL (32.0-36.0); MEAN CORPUSCULAR VOLUME 85.2 fL (79-99); MONOCYTES % (AUTO) 6.2 % (3.0-13.0); NEUTROPHILS % (AUTO) 70.8 % (40.0-77.0); PLATELET COUNT (AUTO) 382 K/uL (130-400); RED BLOOD CELL COUNT(AUTO) 5.12 MIL/uL (4.50-6.20); RED CELL DISTRIBUTION WIDTH 13.4 % (11.0-15.5); WHITE BLOOD COUNT (AUTO) 10.7 K/uL (4.8-10.8)
[2019-06-23 19:07] LABS: INR 0.95 (0.85-1.15); PARTIAL THROMBOPLASTIN TIME 26.3 SEC (26.3-35.5); PROTHROMBIN TIME 10.3 SEC (9.6-11.6)
[2019-06-23 19:08] LABS: CREATININE 1.5 mg/dL (0.5-1.5); POTASSIUM 3.6 mmol/L (3.5-5.1)
[2019-06-23 19:19] LABS: ALBUMIN 3.3 g/dL (3.5-5.0); BILIRUBIN,TOTAL 0.3 mg/dL (0.2-1.0); TOTAL PROTEIN, SERUM 7.6 g/dL (6.0-8.3)
[2019-06-23 20:48] LABS: APPEARANCE,URINE Clear (CLEAR); BILIRUBIN,URINE Negative (NEGATIVE); COLOR,URINE Yellow (YELLOW); GLUCOSE, URINE (UA) Negative (NEGATIVE); KETONES,URINE Trace mg/dL (NEGATIVE); LEUKOCYTE ESTERASE ,URINE Trace (NEGATIVE); NITRATE,URINE Negative (NEGATIVE); OCCULT BLOOD,URINE Negative (NEGATIVE); PH,URINE 6.5 (5.0-8.0); PROTEIN,URINE POS 1+ mg/dL (NEGATIVE)
[2019-06-23 20:56] LABS: AMPHET/METH SCREEN,URINE NEGATIVE (NEGATIVE); BARBITURATE SCREEN, URINE NEGATIVE (NEGATIVE); BENZODIAZEPINES SCREEN,URINE NEGATIVE (NEGATIVE); CANNABINOID SCREEN,URINE POSITIVE (NEGATIVE); COCAINE SCREEN,URINE NEGATIVE (NEGATIVE); OPIATE SCREEN,URINE NEGATIVE (NEGATIVE); PHENCYCLIDINE SCREEN,URINE POSITIVE (NEGATIVE)
[2019-06-23 21:02] LABS: BACTERIA,URINE Few /HPF (None Seen); MUCUS,URINE Few LPF (None Seen); SQUAMOUS EPITHELIAL CELL,UR 0-2 /HPF (0-2)
[2019-06-23] MEDS ORDERED: DOXYCYCLINE HYCLATE 100 MG TABLET PO ONE (21:11)
== END 2019-06-23 22:01 | disposition home or self-care (01) ==
LOC: EDH 17:49
DX: R06.00 Dyspnea, unspecified (principal); R00.0 Tachycardia, unspecified; R50.9 Fever, unspecified; F41.9 Anxiety disorder, unspecified; I10 Essential (primary) hypertension; Z79.899 Other long term (current) drug therapy
CPT/HCPCS: 36415; 71046; 80053; 80305; 81001; 82550; 84484; 85025; 85378; 85610; 85730; 93005

== ENCOUNTER → 2019-12-29 | Outpatient (CLI) | payer OTHER, MEDICARE ==
[~2019-12-29] MED LIST changes: +HYDR-4379 PO
== END | disposition home or self-care (01) ==
LOC: DTH 13:18
PROVIDERS: ATTEND Surgery
DX: E66.09 Other obesity due to excess calories (principal); E11.9 Type 2 diabetes mellitus without complications; Z20.828 Contact with and (suspected) exposure to other viral communicable diseases
CPT/HCPCS: C9803; U0003

== ENCOUNTER 2020-01-02 07:38 | Day surgery (SDC) | payer OTHER, MEDICARE ==
[~2020-01-02] VITALS: Ht 175.3 cm; Wt 176.4 kg
[2020-01-02] VITALS (8 sets, daily range): BP systolic 113–148; BP diastolic 84–107
[~2020-01-02 07:38] MED LIST changes: -HYDR-4379 PO
[2020-01-02] MEDS ORDERED: HYDR-4379 PO (08:19)
[2020-01-02] MEDS ORDERED: SODIUM CHLORIDE 0.9% 1000ML 1,000 ML IV ONE (08:32)
[2020-01-02] MEDS ORDERED: LIDOCAINE HCL-MPF 2% 5ML VIAL ONE (11:03)
[2020-01-02] MEDS ORDERED: GLYCOPYRROLATE 1 MG/5 ML SYRINGE ONE (11:03)
[2020-01-02] MEDS ORDERED: PROPOFOL 10 MG/ML 20ML VIAL IV ONE (11:03)
== END 2020-01-02 11:50 | disposition home or self-care (01) ==
LOC: ENDO 07:38 → DAH 07:38 → ENDO 11:50
PROVIDERS: ATTEND Surgery
DX: K21.9 Gastro-esophageal reflux disease without esophagitis (principal); K31.84 Gastroparesis; E66.01 Morbid (severe) obesity due to excess calories; Z68.44 Body mass index [BMI] 60.0-69.9, adult; Z79.899 Other long term (current) drug therapy; Z98.890 Other specified postprocedural states
CPT/HCPCS: 43235; A4215; A4620; J2704; J3490 ×2; J7030

== ENCOUNTER 2020-01-29 02:06 | Emergency (ER) | payer OTHER, MEDICARE ==
[~2020-01-29 02:06] MED LIST changes: -CYCL10TA7 PO; -GABA-531 PO; +HYDR-4379 PO; -TYL3 PO
[2020-01-29 02:34] LABS: APPEARANCE,URINE Clear (CLEAR); BILIRUBIN,URINE Negative (NEGATIVE); COLOR,URINE Yellow (YELLOW); GLUCOSE, URINE (UA) >=1000 mg/dL (NEGATIVE); KETONES,URINE 40 mg/dL (NEGATIVE); LEUKOCYTE ESTERASE ,URINE Negative (NEGATIVE); NITRATE,URINE Negative (NEGATIVE); OCCULT BLOOD,URINE Trace (NEGATIVE); PROTEIN,URINE Negative (NEGATIVE); UROBILINOGEN,URINE 0.2 mg/dL (0.2-1.0)
[2020-01-29 02:43] LABS: BACTERIA,URINE None Seen /HPF (None Seen); RBC,URINE 0-1 /HPF (0-1); SQUAMOUS EPITHELIAL CELL,UR Rare /HPF (0-2); WBC,URINE 0-1 /HPF (0-1)
[2020-01-29 02:46] LABS: BASOPHILS % (AUTO) 0.6 % (0.0-5.0); EOSINOPHILS % (AUTO) 0.8 % (0.0-8.0); HEMATOCRIT 44.4 % (42-54); MEAN CORPUSCULAR HEMOGLOBIN 28.5 pg (27.0-33.0); MEAN CORPUSCULAR HGB CONC 34.2 g/dL (32.0-36.0); MEAN CORPUSCULAR VOLUME 83.1 fL (79-99); NEUTROPHILS % (AUTO) 74.4 % (40.0-77.0); PLATELET COUNT (AUTO) 274 K/uL (130-400); RED BLOOD CELL COUNT(AUTO) 5.34 MIL/uL (4.50-6.20); RED CELL DISTRIBUTION WIDTH 12.6 % (11.0-15.5); WHITE BLOOD COUNT (AUTO) 9.7 K/uL (4.8-10.8)
[2020-01-29 03:01] LABS: ALBUMIN 3.6 g/dL (3.5-5.0); BILIRUBIN,TOTAL 0.5 mg/dL (0.2-1.0); CREATININE 1.1 mg/dL (0.5-1.5); POTASSIUM 3.8 mmol/L (3.5-5.1); TOTAL PROTEIN, SERUM 8.2 g/dL (6.0-8.3)
[2020-01-29] MEDS ORDERED: METFORMIN HCL 500 MG TABLET ONE (04:15)
== END 2020-01-29 04:25 | disposition home or self-care (01) ==
LOC: EDH 02:06
DX: E11.65 Type 2 diabetes mellitus with hyperglycemia (principal); F41.9 Anxiety disorder, unspecified; I10 Essential (primary) hypertension; Z79.899 Other long term (current) drug therapy
CPT/HCPCS: 36415; 80053; 81001; 82948; 85025

== ENCOUNTER 2021-06-20 13:04 | Emergency (ER) | payer MEDICARE, OTHER ==
[~2021-06-20] VITALS: Ht 175.3 cm; Wt 143.8 kg
[2021-06-20] MEDS ORDERED: KETOROLAC 60 MG VIAL (30MG/ML) IM SCH (14:00)
[2021-06-20] MEDS ORDERED: LIDOCAINE 5% TOPICAL PATCH TP ONE (14:51)
[2021-06-20] MEDS ORDERED: LIDOP TP (14:55)
[2021-06-20 14:56] LABS: AMPHET/METH SCREEN,URINE NEGATIVE (NEGATIVE); BARBITURATE SCREEN, URINE NEGATIVE (NEGATIVE); BENZODIAZEPINES SCREEN,URINE NEGATIVE (NEGATIVE); CANNABINOID SCREEN,URINE NEGATIVE (NEGATIVE); COCAINE SCREEN,URINE NEGATIVE (NEGATIVE); OPIATE SCREEN,URINE NEGATIVE (NEGATIVE); PHENCYCLIDINE SCREEN,URINE NEGATIVE (NEGATIVE)
[2021-06-20 15:06] VITALS: BP 145/74
== END 2021-06-20 15:15 | disposition home or self-care (01) ==
LOC: EDH 13:04
DX: G89.29 Other chronic pain (principal); M54.6 Pain in thoracic spine; Z98.890 Other specified postprocedural states
CPT/HCPCS: 72128; 80305; 96372; 99284; J1885

== ENCOUNTER 2022-09-06 05:58 | Emergency (ER) | payer OTHER ==
[~2022-09-06] VITALS: Ht 175.3 cm; Wt 136.1 kg
[~2022-09-06 05:58] MED LIST changes: +LIDOP TP
[2022-09-06] MEDS ORDERED: ONDANSETRON 4MG INJ IVP ONE (08:00)
[2022-09-06] MEDS ORDERED: MORPHINE 4 MG SYG IVP ONE (08:00)
[2022-09-06] MEDS ORDERED: ACETAMINOPHEN 500 MG TABLET PO ONE (10:00)
[2022-09-06] MEDS ORDERED: MELO-106 PO (12:21)
[2022-09-06] MEDS ORDERED: CYCL10TA16 PO (12:21)
[2022-09-06 12:50] VITALS: BP 128/72
== END 2022-09-06 13:13 | disposition home or self-care (01) ==
LOC: EDH 05:58
DX: S16.1XXA Strain of muscle, fascia and tendon at neck level, initial encounter (principal); M48.02 Spinal stenosis, cervical region; W01.0XXA Fall on same level from slipping, tripping and stumbling without subsequent striking against object, initial encounter; Y93.89 Activity, other specified; Y92.89 Other specified places as the place of occurrence of the external cause; Y99.8 Other external cause status
CPT/HCPCS: 99285; 70450; 96374; 71045; 96375; 72170; 72125; J2405; J2270

== ENCOUNTER 2023-11-27 07:26 | Inpatient (IN) | payer SELFPAY ==
[~2023-11-27] VITALS: Ht 175.3 cm; Wt 125.2 kg
[~2023-11-27 07:26] MED LIST changes: +CYCL10TA16 PO; +MELO-106 PO
[2023-11-27 07:42] LABS: BASOPHILS # (AUTO) 0.06 K/uL (0.00-0.20); BASOPHILS % (AUTO) 0.9 % (0.0-5.0); EOSINOPHILS # (AUTO) 0.22 K/uL (0.00-0.70); EOSINOPHILS % (AUTO) 3.4 % (0.0-8.0); HEMATOCRIT 35.9 % (42-54); IMMATURE GRANULOCYTE ABSOLUTE 0.01 K/uL (0-1); LYMPHOCYTES # (AUTO) 2.2 K/uL (1.0-4.8); LYMPHOCYTES % (AUTO) 34.1 % (21.0-51.0); MEAN CORPUSCULAR HEMOGLOBIN 27.9 pg (27.0-33.0); MEAN CORPUSCULAR HGB CONC 33.1 g/dL (32.0-36.0); MEAN CORPUSCULAR VOLUME 84.3 fL (79-99); MONOCYTES # (AUTO) 0.4 K/uL (0.1-1.0); MONOCYTES % (AUTO) 5.9 % (3.0-13.0); NEUTROPHILS # (AUTO) 3.6 K/uL (1.8-7.7); NEUTROPHILS % (AUTO) 55.5 % (40.0-77.0); PLATELET COUNT (AUTO) 346 K/uL (130-400); RED BLOOD CELL COUNT(AUTO) 4.26 MIL/uL (4.50-6.20); WHITE BLOOD COUNT (AUTO) 6.4 K/uL (4.8-10.8)
[2023-11-27 07:57] LABS: POTASSIUM 3.6 mmol/L (3.5-5.1)
[2023-11-27 08:17] LABS: B-TYPE NATRIURETIC PEPTIDE 17 pg/mL (0-100)
[2023-11-27] MEDS: MAG/ALUM/SIMETH 30 ML UDCUP PO ONE (09:48)
[2023-11-27] MEDS: NITROGLYCERIN 1GM OINT 1 INCH/1GM TD ONE (09:49)
[2023-11-27] MEDS: ASPIRIN 81MG CHEW TAB PO ONE (09:49)
[2023-11-27 10:50] VITALS: O2SAT 96
[2023-11-27] MEDS ORDERED: DEXTROSE 50%-WATER 50 ML DISP.SYRIN IV PRN (11:30)
[2023-11-27] MEDS ORDERED: PoTASSium chloRIDE 20MEQ/100ML 100 ML IV PRN (11:30)
[2023-11-27] MEDS ORDERED: acetaMINOPHEN 325 MG TAB PO PRN (11:30)
[2023-11-27] MEDS ORDERED: GLUCAGON 1MG KIT 1 MG ML IM PRN (11:30)
[2023-11-27] MEDS ORDERED: PoTASSium chloRIDE 20MEQ ER 20 MEQ ERTAB PO PRN (11:30)
[2023-11-27] MEDS ORDERED: hydrALAZine 20MG/ML VIAL IV PRN (11:30)
[2023-11-27] MEDS: INSULIN humuLIN R 100 UNIT/ML 3ML SQ SCH (11:30)
[2023-11-27] MEDS ORDERED: PoTASSium chl 10% ELIXIR 20MEQ 20 MEQ/15 ML UDCUP PO PRN (11:30)
[2023-11-27 12:00] VITALS: BP 120/80; PULSE 73; RESP 18; TEMP 98.1
[2023-11-27 16:00] VITALS: BP 148/96; PULSE 73; RESP 18; TEMP 98.3
[2023-11-27] MEDS: ketOROlac 15MG/ML VIAL (15MG/ML) IV PRN (18:14)
[2023-11-27 20:00] VITALS: BP 136/75; PULSE 77; RESP 18; TEMP 97.5
[2023-11-27] MEDS: FAMOTIDINE 20MG VIAL IV SCH (21:56)
== END 2023-11-27 23:10 | disposition left against medical advice (07) | DRG 313 ==
LOC: EDH 07:26 → EDHIP 10:11 → 4BH 11:09
PROVIDERS: ADMIT Internal Medicine Sleep Medicine; ATTEND Internal Medicine Sleep Medicine
DX: R07.89 Other chest pain (principal); Z68.41 Body mass index [BMI] 40.0-44.9, adult; I10 Essential (primary) hypertension; G89.29 Other chronic pain; Z53.29 Procedure and treatment not carried out because of patient's decision for other reasons; F51.04 Psychophysiologic insomnia; E78.5 Hyperlipidemia, unspecified; E66.01 Morbid (severe) obesity due to excess calories; M54.9 Dorsalgia, unspecified; D64.9 Anemia, unspecified; Z80.0 Family history of malignant neoplasm of digestive organs; Z82.49 Family history of ischemic heart disease and other diseases of the circulatory system; Z87.891 Personal history of nicotine dependence; Z98.84 Bariatric surgery status
CPT/HCPCS: 36415; 71045; 80048; 82550; 82948; 83880; 84484; 85025; 93005; G0378; J1885; J3490

== ENCOUNTER 2023-12-17 20:08 | Emergency (ER) | payer MEDICARE ==
[~2023-12-17] VITALS: Ht 172.7 cm; Wt 2.5 kg
[2023-12-17 20:39] LABS: BASOPHILS # (AUTO) 0.04 K/uL (0.00-0.20); BASOPHILS % (AUTO) 0.8 % (0.0-5.0); EOSINOPHILS # (AUTO) 0.17 K/uL (0.00-0.70); EOSINOPHILS % (AUTO) 3.5 % (0.0-8.0); HEMATOCRIT 38.6 % (42-54); LYMPHOCYTES # (AUTO) 1.7 K/uL (1.0-4.8); MEAN CORPUSCULAR HEMOGLOBIN 27.8 pg (27.0-33.0); MEAN CORPUSCULAR HGB CONC 32.6 g/dL (32.0-36.0); MEAN CORPUSCULAR VOLUME 85.2 fL (79-99); MONOCYTES # (AUTO) 0.3 K/uL (0.1-1.0); MONOCYTES % (AUTO) 5.8 % (3.0-13.0); NEUTROPHILS # (AUTO) 2.6 K/uL (1.8-7.7); NEUTROPHILS % (AUTO) 53.9 % (40.0-77.0); PLATELET COUNT (AUTO) 390 K/uL (130-400); RED BLOOD CELL COUNT(AUTO) 4.53 MIL/uL (4.50-6.20); RED CELL DISTRIBUTION WIDTH 13.7 % (11.0-15.5); WHITE BLOOD COUNT (AUTO) 4.8 K/uL (4.8-10.8)
[2023-12-17 20:46] LABS: MAGNESIUM 1.7 mg/dL (1.80-2.40); POTASSIUM 3.1 mmol/L (3.5-5.1)
[2023-12-17] MEDS: ASPIRIN 325MG TAB PO ONE (20:58)
[2023-12-17 21:19] LABS: B-TYPE NATRIURETIC PEPTIDE 10 pg/mL (0-100)
[2023-12-18 00:23] VITALS: BP 122/88; PULSE 78; RESP 16; TEMP 98.1; O2SAT 99
== END 2023-12-18 00:26 | disposition home or self-care (01) ==
LOC: EDH 20:08
DX: R06.00 Dyspnea, unspecified (principal); G89.29 Other chronic pain; Z79.899 Other long term (current) drug therapy; Z98.890 Other specified postprocedural states
CPT/HCPCS: 36415; 71045; 80048; 83735; 83880; 84484; 85025; 93005